=== PATIENT | female | born 1945 | race Hispanic/Latino ===

== ENCOUNTER → 2018-10-16 | Outpatient (CLI) | payer OTHER ==
[~2018-10-16] MED LIST: ASCO500T9 PO; CALC600T12 PO; CHOL100046 PO; MULT-1203 PO; OMEG1CAP12 PO; OMEP40CA37 PO; VITA200T6 PO
== END | disposition home or self-care (01) ==
LOC: RAH 14:42
PROVIDERS: ATTEND Internal Medicine
DX: I82.401 Acute embolism and thrombosis of unspecified deep veins of right lower extremity (principal)
CPT/HCPCS: 93971

== ENCOUNTER → 2019-04-19 | Outpatient (CLI) | payer OTHER | END | disposition home or self-care (01) | LOC: RAH 11:48 | PROVIDERS: ATTEND Internal Medicine | DX: M54.5 Low back pain (principal) | CPT/HCPCS: 72100; 72220 ==

== ENCOUNTER → 2019-09-01 | Outpatient (CLI) | payer OTHER ==
[~2019-09-01] MED LIST changes: +OMEP40CA13 PO; -OMEP40CA37 PO
== END | disposition home or self-care (01) ==
LOC: RAH 10:11
PROVIDERS: ATTEND Internal Medicine
DX: M25.561 Pain in right knee (principal)
CPT/HCPCS: 73562

== ENCOUNTER 2020-04-14 10:57 | Emergency (ER) | payer OTHER ==
[~2020-04-14 10:57] MED LIST changes: +ASCO500T20 PO; -ASCO500T9 PO; -CALC600T12 PO; +CALC600T15 PO
[2020-04-14] MEDS ORDERED: MAG HYDROX/AL HYDROX/SIMETH ES 30 ML SUSP UDCUP ONE (11:40)
[2020-04-14] MEDS ORDERED: LIDOCAINE HCL 2% VISCOUS 15 ML UDCUP ONE (11:40)
[2020-04-14 11:41] LABS: BASOPHILS % (AUTO) 0.3 % (0.0-5.0); LYMPHOCYTES % (AUTO) 26.3 % (21.0-51.0); MEAN CORPUSCULAR HEMOGLOBIN 29.4 pg (27.0-33.0); MEAN CORPUSCULAR HGB CONC 33.8 g/dL (32.0-36.0); MEAN CORPUSCULAR VOLUME 87.1 fL (79-99); MONOCYTES % (AUTO) 8.7 % (3.0-13.0); NEUTROPHILS % (AUTO) 63.4 % (40.0-77.0); PLATELET COUNT (AUTO) 164 K/uL (130-400); RED BLOOD CELL COUNT(AUTO) 4.59 MIL/uL (4.00-5.50); RED CELL DISTRIBUTION WIDTH 11.6 % (11.0-15.5); WHITE BLOOD COUNT (AUTO) 7.1 K/uL (4.8-10.8)
[2020-04-14 11:45] LABS: CREATININE 0.9 mg/dL (0.5-1.5); POTASSIUM 4.1 mmol/L (3.5-5.1)
[2020-04-14 11:50] LABS: ALBUMIN 4.3 g/dL (3.5-5.0); BILIRUBIN,TOTAL 1.2 mg/dL (0.2-1.0); TOTAL PROTEIN, SERUM 8.3 g/dL (6.0-8.3)
[2020-04-14 11:52] LABS: INR 0.89 (0.85-1.15); PARTIAL THROMBOPLASTIN TIME 26.8 SEC (26.3-35.5); PROTHROMBIN TIME 9.7 SEC (9.6-11.6)
[2020-04-14] MEDS ORDERED: FAMOTIDINE/PF 20 MG/2 ML VIAL IV ONE (13:03)
[2020-04-14] MEDS ORDERED: ACETAMINOPHEN EXTRA STRENGTH 500 MG TABLET ONE (16:01)
[2020-04-14] MEDS ORDERED: SODIUM CHLORIDE 0.9% 100 ML IV ONE (16:57)
== END 2020-04-14 16:30 | disposition home or self-care (01) ==
LOC: EDH 10:57
DX: K29.00 Acute gastritis without bleeding (principal); R07.89 Other chest pain; E78.00 Pure hypercholesterolemia, unspecified; Z90.49 Acquired absence of other specified parts of digestive tract; Z90.710 Acquired absence of both cervix and uterus; Z88.1 Allergy status to other antibiotic agents; Z88.6 Allergy status to analgesic agent
CPT/HCPCS: 36415; 71045; 80053; 82550; 84484 ×2; 85025; 85610; 85730; 93005 ×2; 96374; 99285; J3490

== ENCOUNTER → 2020-04-20 | Outpatient (CLI) | payer OTHER | END | disposition home or self-care (01) | LOC: RAH 08:32 | PROVIDERS: ATTEND Internal Medicine | DX: I08.1 Rheumatic disorders of both mitral and tricuspid valves (principal); I25.3 Aneurysm of heart | CPT/HCPCS: 93306; 93356 ==

== ENCOUNTER 2020-05-01 03:20 | Emergency (ER) | payer OTHER ==
[2020-05-01 03:56] LABS: BASOPHILS % (AUTO) 0.4 % (0.0-5.0); EOSINOPHILS % (AUTO) 1.1 % (0.0-8.0); HEMATOCRIT 40.6 % (36-48); LYMPHOCYTES % (AUTO) 32.7 % (21.0-51.0); MEAN CORPUSCULAR HEMOGLOBIN 29.4 pg (27.0-33.0); MEAN CORPUSCULAR VOLUME 86.4 fL (79-99); MONOCYTES % (AUTO) 9.5 % (3.0-13.0); NEUTROPHILS % (AUTO) 56.2 % (40.0-77.0); PLATELET COUNT (AUTO) 179 K/uL (130-400); RED CELL DISTRIBUTION WIDTH 11.3 % (11.0-15.5); WHITE BLOOD COUNT (AUTO) 7.6 K/uL (4.8-10.8)
[2020-05-01] MEDS ORDERED: CEFTRIAXONE SODIUM 1 GM ONE (04:04)
[2020-05-01] MEDS ORDERED: PHENAZOPYRIDINE HCL 200 MG TABLET ONE (04:05)
[2020-05-01 04:07] LABS: POTASSIUM 3.6 mmol/L (3.5-5.1)
[2020-05-01 04:25] LABS: APPEARANCE,URINE Clear (CLEAR); BILIRUBIN,URINE Negative (NEGATIVE); COLOR,URINE Yellow (YELLOW); GLUCOSE, URINE (UA) Negative (NEGATIVE); KETONES,URINE Negative (NEGATIVE); LEUKOCYTE ESTERASE ,URINE Negative (NEGATIVE); NITRATE,URINE Negative (NEGATIVE); OCCULT BLOOD,URINE Trace (NEGATIVE); PROTEIN,URINE Negative (NEGATIVE); UROBILINOGEN,URINE 0.2 mg/dL (0.2-1.0)
[2020-05-01 04:34] LABS: BACTERIA,URINE Rare /HPF (None Seen); MUCUS,URINE Few LPF (None Seen); RBC,URINE None Seen /HPF (0-1); SQUAMOUS EPITHELIAL CELL,UR Rare /HPF (0-2); WBC,URINE None Seen /HPF (0-1)
[2020-05-01] MEDS ORDERED: IOHEXOL-350 75 ML VIAL IV ONE (06:03)
== END 2020-05-01 06:39 | disposition home or self-care (01) ==
LOC: EDH 03:20
DX: R10.2 Pelvic and perineal pain (principal); E78.00 Pure hypercholesterolemia, unspecified; Z90.49 Acquired absence of other specified parts of digestive tract; Z90.710 Acquired absence of both cervix and uterus; Z88.8 Allergy status to other drugs, medicaments and biological substances; Z88.6 Allergy status to analgesic agent; Z88.1 Allergy status to other antibiotic agents
CPT/HCPCS: 36415; 51701; 80048; 81001; 83605; 85025; 87088; 96374; 99284; J0696; Q9967

== ENCOUNTER → 2020-05-18 | Outpatient (CLI) | payer OTHER | END | disposition home or self-care (01) | LOC: RAH 10:44 | PROVIDERS: ATTEND Internal Medicine | DX: N32.89 Other specified disorders of bladder (principal); R10.2 Pelvic and perineal pain | CPT/HCPCS: 76856 ==

== ENCOUNTER 2020-06-13 10:49 | Emergency (ER) | payer OTHER ==
[2020-06-13 11:58] LABS: BASOPHILS % (AUTO) 0.1 % (0.0-5.0); EOSINOPHILS % (AUTO) 0.6 % (0.0-8.0); HEMATOCRIT 39.9 % (36-48); LYMPHOCYTES % (AUTO) 19.2 % (21.0-51.0); MEAN CORPUSCULAR HEMOGLOBIN 29.5 pg (27.0-33.0); MEAN CORPUSCULAR HGB CONC 33.1 g/dL (32.0-36.0); MEAN CORPUSCULAR VOLUME 89.1 fL (79-99); MONOCYTES % (AUTO) 6.8 % (3.0-13.0); PLATELET COUNT (AUTO) 175 K/uL (130-400); RED BLOOD CELL COUNT(AUTO) 4.48 MIL/uL (4.00-5.50); RED CELL DISTRIBUTION WIDTH 11.9 % (11.0-15.5); WHITE BLOOD COUNT (AUTO) 6.9 K/uL (4.8-10.8)
[2020-06-13 12:14] LABS: APPEARANCE,URINE Clear (CLEAR); BILIRUBIN,URINE Negative (NEGATIVE); COLOR,URINE Yellow (YELLOW); GLUCOSE, URINE (UA) Negative (NEGATIVE); KETONES,URINE Negative (NEGATIVE); LEUKOCYTE ESTERASE ,URINE Negative (NEGATIVE); NITRATE,URINE Negative (NEGATIVE); OCCULT BLOOD,URINE Negative (NEGATIVE); PH,URINE 7.5 (5.0-8.0); PROTEIN,URINE Negative (NEGATIVE); UROBILINOGEN,URINE 0.2 mg/dL (0.2-1.0)
[2020-06-13 12:16] LABS: ALBUMIN 3.8 g/dL (3.5-5.0); BILIRUBIN,TOTAL 0.6 mg/dL (0.2-1.0); CREATININE 0.9 mg/dL (0.5-1.5); POTASSIUM 4.1 mmol/L (3.5-5.1); TOTAL PROTEIN, SERUM 7.2 g/dL (6.0-8.3)
[2020-06-13 12:33] LABS: INR 0.91 (0.85-1.15); PROTHROMBIN TIME 9.9 SEC (9.6-11.6)
[2020-06-13] MEDS ORDERED: IOHEXOL-350 75 ML VIAL IV ONE (14:32)
== END 2020-06-13 14:48 | disposition home or self-care (01) ==
LOC: EDH 10:49
DX: R10.11 Right upper quadrant pain (principal); G89.4 Chronic pain syndrome; E78.00 Pure hypercholesterolemia, unspecified; K21.9 Gastro-esophageal reflux disease without esophagitis; Z88.1 Allergy status to other antibiotic agents; Z88.8 Allergy status to other drugs, medicaments and biological substances; Z90.710 Acquired absence of both cervix and uterus; Z98.890 Other specified postprocedural states
CPT/HCPCS: 36415; 71045; 76705; 80053; 81003; 82550; 83690; 84439; 84443; 84480; 84481; 84484; 85025; 85610; 85730; 93005; Q9967

== ENCOUNTER → 2021-03-13 | Outpatient (CLI) | payer OTHER ==
[~2021-03-13] MED LIST changes: +CALC-1125 PO; -CALC600T15 PO; -OMEP40CA13 PO; +OMEP40CA21 PO
== END | disposition home or self-care (01) ==
LOC: RAH 09:56
PROVIDERS: ATTEND Urology Pediatric Urology
DX: N20.1 Calculus of ureter (principal); N20.0 Calculus of kidney; K76.89 Other specified diseases of liver; K57.90 Diverticulosis of intestine, part unspecified, without perforation or abscess without bleeding
CPT/HCPCS: 74176

== ENCOUNTER → 2021-07-26 | Outpatient (CLI) | payer OTHER ==
[2021-07-26 10:44] LABS: BASOPHILS % (AUTO) 0.3 % (0.0-5.0); EOSINOPHILS % (AUTO) 0.7 % (0.0-8.0); HEMATOCRIT 39.7 % (36-48); LYMPHOCYTES % (AUTO) 27.6 % (21.0-51.0); MEAN CORPUSCULAR HEMOGLOBIN 29.1 pg (27.0-33.0); MEAN CORPUSCULAR HGB CONC 32.2 g/dL (32.0-36.0); MEAN CORPUSCULAR VOLUME 90.2 fL (79-99); NEUTROPHILS % (AUTO) 63.1 % (40.0-77.0); PLATELET COUNT (AUTO) 155 K/uL (130-400); WHITE BLOOD COUNT (AUTO) 6.1 K/uL (4.8-10.8)
[2021-07-26 10:58] LABS: CREATININE 0.9 mg/dL (0.5-1.5); POTASSIUM 4.4 mmol/L (3.5-5.1)
== END | disposition home or self-care (01) ==
LOC: LAB 10:00
PROVIDERS: ATTEND Urology
DX: K57.30 Diverticulosis of large intestine without perforation or abscess without bleeding (principal); K52.3 Indeterminate colitis; N39.0 Urinary tract infection, site not specified
CPT/HCPCS: 36415; 80048; 85025

== ENCOUNTER → 2021-07-30 | Outpatient (CLI) | payer OTHER ==
[~2021-07-30] MED LIST changes: +IOHEXOL-350 75 ML VIAL IV ONE
== END | disposition home or self-care (01) ==
LOC: RAH 08:11
PROVIDERS: ATTEND Urology
DX: K57.30 Diverticulosis of large intestine without perforation or abscess without bleeding (principal); K52.3 Indeterminate colitis; K76.89 Other specified diseases of liver; N39.0 Urinary tract infection, site not specified; N28.1 Cyst of kidney, acquired; N32.89 Other specified disorders of bladder; M47.815 Spondylosis without myelopathy or radiculopathy, thoracolumbar region
CPT/HCPCS: 74178; Q9967

== ENCOUNTER → 2021-12-11 | Outpatient (CLI) | payer OTHER ==
[~2021-12-11] MED LIST changes: -IOHEXOL-350 75 ML VIAL IV ONE
== END ==
LOC: RAH 12:45
PROVIDERS: ATTEND Internal Medicine
DX: N93.9 Abnormal uterine and vaginal bleeding, unspecified (principal); Z90.710 Acquired absence of both cervix and uterus
CPT/HCPCS: 76856

== ENCOUNTER → 2022-01-09 | Outpatient (CLI) | payer OTHER | END | disposition home or self-care (01) | LOC: RAH 12:59 | PROVIDERS: ATTEND Internal Medicine Cardiovascular Disease | DX: Z13.6 Encounter for screening for cardiovascular disorders (principal) | CPT/HCPCS: 75571 ==

== ENCOUNTER → 2022-10-09 | Outpatient (CLI) | payer OTHER | END | disposition home or self-care (01) | LOC: RAH 09:58 | PROVIDERS: ATTEND Internal Medicine | DX: M25.551 Pain in right hip (principal) | CPT/HCPCS: 73502 ==

== ENCOUNTER 2025-03-07 07:01 | Emergency (ER) | payer OTHER ==
[~2025-03-07] VITALS: Ht 162.6 cm; Wt 74.8 kg
--- NOTE | 2025-03-07 07:32 | EKG ---
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
--- NOTE | 2025-03-07 07:42 | ERN ---
General Chief Complaint: Weakness Stated Complaint: WEAKNESS Time Seen by MD: 07:11 Source: patient History of Present Illness Initial Comments Patient is a 79-year-old female coming in with multiple complaints. Per patient she has been feeling generalized weakness has been also having dysuria and at times she feels chest discomfort. She states that this has been ongoing for several weeks was evaluated by her PCP and was started on medications for dysuria. No fever or chills. Allergies: Coded Allergies: celecoxib (Unverified Allergy, Intermediate, bloody stools, 06/21/16) clarithromycin (Unverified Allergy, Intermediate, bloody stool, 06/21/16) Home Meds Reported Medications Omeprazole (Omeprazole) 40 Mg Capsule.dr, 40 MG PO AD PRN for gerd, CAP 06/21/16 Multivitamin (Multi Vitamin Daily) 1 Each Tablet, 1 EACH PO AM, TAB 06/21/16 Calcium Carbonate (Calcium) 600 Mg Tablet, 600 MG PO BID, TAB 06/21/16 [place]-3 Fatty Acids (Fish Oil) 500 Mg Capsule, 500 MG PO BID, CAP 06/21/16 Cholecalciferol (Vitamin D3) (Vitamin D) 1,000 Unit Capsule, 1000 UNIT PO AM, CAP 06/21/16 Vitamin E Acid Succinate (Vitamin E) 200 Unit Tablet, 200 UNIT PO AM, TAB 06/21/16 Ascorbic Acid (Vitamin C) 500 Mg Tablet, 500 MG PO AM, TAB 06/21/16 Past Medical History Past Medical History: Diabetes-Type II, Hypertension, UTI Medical History Other: CHRONIC BACK PAIN Past Surgical History: Hysterectomy Surgical History Other: WRIST ROS Dictation CONSTITUTIONAL: No chills, no fever, weakness, no diaphoresis, malaise. HEAD/FACE: No signs of trauma. EENT: No eye pain, no blurred vision, no tearing, no double vision, no ear pain, no ear discharge, no nose pain, no nasal congestion, no throat pain, no throat swelling, no mouth pain. RESPIRATORY: No cough, no orthopnea, no SOB, no stridor, no wheezing. CARDIOVASCULAR: No chest pain, no edema, no palpitations, no syncope. GASTROINTESTINAL/ABDOMINAL: No abdominal pain, no constipation, no diarrhea, no nausea, no vomiting. GENITOURINARY: No abnormal discharge, dysuria, no frequent urination, no hematuria. No complaints of pain in the genitals. MUSCULOSKELETAL: No back pain, no gout, no joint pain, no joint swelling, no muscle pain, no muscle stiffness, no neck pain. INTEGUMENTARY: No change in color, no change in hair/nails, no dryness, no lesion, no lumps, no rash. NEUROLOGICAL/PSYCH: No anxiety, not depressed, no emotional problem, no headache, no numbness, no pre-existing deficit, no history of seizures, no tremors, no weakness. HEMATOLOGIC/LYMPHATIC: Not anemic, no history of blood clots, no apparent bleeding, no bruising, glands not swollen. All Systems Negative, Except as Noted. Physical Exam Physical Exam Dictation VITAL SIGNS: Reviewed. GENERAL APPEARANCE: Alert, oriented x3, no acute distress, obese. HEAD AND FACE: Non-traumatic. EYES: PERRL, pink conjunctivas, eyelid no trauma, anterior chamber clear. EARS: Pinnas intact and no signs of trauma or erythema. Ear canals clear and no discharge. TMs no erythema. NOSE: No discharge, no bleeding. OROPHARYNX: Mouth normal, teeth no caries, tongue pink. Pharynx clear, no erythema. Tonsils no exudates, no abscesses noted. Mucous membrane moist. NECK: Supple, non-tender, no thyromegaly, no masses, no JVD, no bruits. BREAST: Deferred. CHEST: No tenderness, no crepitus, no paradoxical movement, no retractions. LUNGS: Clear, well-ventilated, symmetric, no rales, no wheezing, no rhonchi, no stridor, good breath sounds bilaterally. HEART: Regular rate, regular rhythm, no murmur, no gallops. VASCULAR: No peripheral edema. ABDOMEN: Soft, positive bowel sounds, nondistended, no guarding, nontender, no rebound, no masses no hepatomegaly, no splenomegaly, no Gonzalez's sign, no hernias. RECTAL: Deferred. GENITAL: Deferred. NEUROLOGICAL: Normal speech, gross motor function intact, gross sensory function intact. MUSCULOSKELETAL: Neck nontender, full range of motion, back nontender, full range of motion. EXTREMITIES: Nontender, full range of motion. SKIN: Color pink, dry, no turgor, no rash, no lacerations, no abrasions, no contusions. LYMPHATICS: Deferred. Results Laboratory and Microbiology Lab and Micro Result Laboratory Tests Test 03/07/25 07:14 03/07/25 07:18 Urine Color LIGHT-YELLOW (YELLOW) Urine Appearance CLEAR (CLEAR) Urine pH 7.5 (5.0-8.0) Urine Specific [place] 1.010 (1.001-1.031) Urine Protein NEGATIVE mg/dL (NEGATIVE) Urine Glucose (UA) NEGATIVE mg/dL (NEGATIVE) Urine Ketones NEGATIVE mg/dL (NEGATIVE) Urine Occult Blood NEGATIVE (NEGATIVE) Urine Nitrate NEGATIVE (NEGATIVE) Urine Bilirubin NEGATIVE mg/dL (NEGATIVE) Urine Urobilinogen 0.2 mg/dL (0.2-1.0) Urine Leukocyte Esterase NEGATIVE [place]/uL White Blood Count 5.5 K/uL (4.8-10.8) Red Blood Count 4.34 MIL/uL (4.00-5.50) Hemoglobin 12.8 g/dL (12.0-16.0) Hematocrit 39.0 % (36-48) Mean Corpuscular Volume 89.9 fL (79-99) Mean Corpuscular Hemoglobin 29.5 pg (27.0-33.0) Mean Corpuscular Hemoglobin Concent 32.8 g/dL (32.0-36.0) Red Cell Distribution Width 12.2 % (11.0-15.5) Platelet Count 179 K/uL (130-400) Mean Platelet Volume 10.9 fL (7.5-10.5) H Immature Granulocyte % (Auto) 0.4 % (0-1) Neutrophils (%) (Auto) 53.9 % (40.0-77.0) Lymphocytes (%) (Auto) 35.7 % (21.0-51.0) Monocytes (%) (Auto) 8.7 % (3.0-13.0) Eosinophils (%) (Auto) 1.1 % (0.0-8.0) Basophils (%) (Auto) 0.2 % (0.0-5.0) Neutrophils # (Auto) 3.0 K/uL (1.8-7.7) Lymphocytes # (Auto) 2.0 K/uL (1.0-4.8) Monocytes # (Auto) 0.5 K/uL (0.1-1.0) Eosinophils # (Auto) 0.06 K/uL (0.00-0.70) Basophils # (Auto) 0.01 K/uL (0.00-0.20) Absolute Immature Granulocyte (auto 0.02 K/uL (0-1) Nucleated Red Blood Cells 0.0 % (0.0-0.19) Sodium Level 140 mmol/L (136-145) Potassium Level 3.9 mmol/L (3.5-5.1) Chloride Level 105 mmol/L (101-111) Carbon Dioxide Level 31 mmol/L (21-32) Blood Urea Nitrogen 19 mg/dL (7-18) H Creatinine 0.8 mg/dL (0.5-1.0) Glomerular Filtration Rate Calc 75 mL/min (>90) Random Glucose 116 mg/dL (70-105) H Total Calcium 9.2 mg/dL (8.5-10.1) Magnesium Level 2.00 mg/dL (1.80-2.40) Total Creatine Kinase 98 U/L (21-232) # Troponin I High Sensitivity 7 ng/L (4-50) Labs Reviewed?: Yes EKG/XRAY/US/CT/MRI EKG Comment 03/07/2025 time 9:28 a.m. Ventricular rate [address] wave elevation or depression MDM MDM: Differential diagnosis: Dehydration, bradycardia, Rationale: Tests considered and ordered secondary to shared decision making include: Previous outside records reviewed: Old ER visits. Risk of complication and/or morbidity or mortality of patient management: None Medications-Per medication reconciliation Need for hospitalization: Patient does not meet criteria for hospitalization. Patient is a 79-year-old female coming in complaining of generalized body weakness and fatigue. Laboratory workup within normal limits. Patient was hydrated with IV fluids states he feels much better we will be discharged in stable condition. Patient was evaluated with a cardiac workup EKG shows bradycardia I did advise her to mentioned in his to PCP. For ongoing evaluation the patient is asymptomatic. ED Course Orders Procedure Category Date Status Time 12 Lead Ekg Tracing- EKG 03/07/25 Complete Technical 07:20 Cbc With Differential LAB 03/07/25 Complete : Chest 1vw RAD 03/07/25 Resulted 07:28 Lactated Ringers PHA 03/07/25 Complete 1000ml (Lactated 07:30 Magnesium LAB 03/07/25 Complete 07:28 Creatine Kinase, Total LAB 03/07/25 Complete 07:28 Troponin I High LAB 03/07/25 Complete Sensitivity 07:28 Urinalysis Profile LAB 03/07/25 Complete 07:28 Basic Metabolic Panel LAB 03/07/25 Complete 07:28 12 Lead Ekg Tracing- EKG 03/07/25 Complete Technical 09:21 Current Medications Medications (Trade) Dose Ordered Sig/Larry Route PRN Reason Start Time Stop Time Status Last Admin Dose Admin Lactated Ringer's 1,000 ml @ 0 mls/hr ONCE ONCE IV 03/07/25 07:30 03/07/25 07:31 DC 03/07/25 07:46 Vital Signs Date Time Temp Pulse Resp B/P (MAP) Pulse Ox O2 Delivery O2 Flow Rate FiO2 03/07/25 10:26 97.9 50 13 159/57 100 Room Air* 0 21 03/07/25 08:58 97.2 54 15 152/54 98 Room Air* 0 21 03/07/25 07:53 97.9 54 14 157/49 100 Room Air* 0 21 03/07/25 07:03 97.9 56 16 167/55 98 Room Air 0 03/07/25 07:03 97.9 56 16 167/55 98 Room Air* 0 21 DX & DISP Disposition: Discharge Departure Impression: Primary Impression: Dehydration Additional Impression: Bradycardia Condition: Stable Additional Instructions: You have been reviewed in the emergency department at [facility] after presenting with chest pain. After considering your history, your risk factors, your EKG and your blood test troponins, have been found to be at very low risk less than (1 in 100) of having a major adverse cardiac event (like heart attack) in the near future. In the " low risk" group, the risks of doing further tests and treatment as the inpatient outweighs the benefits. In many patients in the low risk group for the test of any sort or unnecessary, however he should discuss this further with his general practitioner who will understand the medical and personal backgrounds better. Because we have never declared you" no risk" we would suggest. 1 returning for medical review if you have further episodes of chest pain/arm pain or other concerning symptoms like dizziness, collapse, palpitations or shortness of breath. 2. Following up with your local doctor who will consider the need for further testing and will also ensure that any modifiable risk factors you may have for heart disease are optimally managed. Patient will be discharged in stable condition at the moment discharge patient states , no chest pain Referrals: BAMBI PASTOR MD (PCP) Time of Disposition: 10:44 DESIRAE ALMEIDA MD Mar 07, 2025 07:42
[2025-03-07 07:44] LABS: IMMATURE GRANULOCYTE ABSOLUTE 0.02 K/uL (0-1); NUCLEATED RED BLOOD CELLS 0.0 % (0.0-0.19); PLATELET COUNT (AUTO) 179 K/uL (130-400); RED BLOOD CELL COUNT(AUTO) 4.34 MIL/uL (4.00-5.50); RED CELL DISTRIBUTION WIDTH 12.2 % (11.0-15.5); WHITE BLOOD COUNT (AUTO) 5.5 K/uL (4.8-10.8)
[2025-03-07] MEDS: LACTATED RINGERS 1000ML 1,000 ML IV ONE (07:46)
[2025-03-07 07:48] LABS: CREATININE 0.8 mg/dL (0.5-1.0); GLOMERULAR FILTR. RATE CALC 75.0 mL/min (>90); GLUCOSE,RANDOM 116.0 mg/dL (70-105); SODIUM SERUM 140.0 mmol/L (136-145); UREA NITROGEN, BLOOD 19.0 mg/dL (7-18)
[2025-03-07 07:53] LABS: CREATINE KINASE, TOTAL 98.0 U/L (21-232)
[2025-03-07 07:56] LABS: APPEARANCE,URINE CLEAR (CLEAR); GLUCOSE, URINE (UA) NEGATIVE (NEGATIVE); LEUKOCYTE ESTERASE ,URINE NEGATIVE Leu/uL (NEGATIVE); NITRATE,URINE NEGATIVE (NEGATIVE); OCCULT BLOOD,URINE NEGATIVE (NEGATIVE)
[2025-03-07 08:01] LABS: ADD UA MICROSCOPIC NO
--- NOTE | 2025-03-07 09:34 | EKG ---
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
--- NOTE | 2025-03-07 10:07 | HMCIMG ---
EXAM: CR Chest, 1 View. CLINICAL HISTORY: cp COMPARISON: None provided. Radiograph dated June 13, 2020. FINDINGS: LUNGS: The lungs show no infiltrate or other acute finding. PLEURAL SPACES: No evidence of pleural effusion or pneumothorax. MEDIASTINUM: Mild cardiomegaly. Pulmonary vasculature and interstitial markings are within normal limits. BONES: No acute osseous abnormality. IMPRESSION: 1. Mild cardiomegaly. /[place]
[2025-03-07 10:26] VITALS: BP 159/57; PULSE 50; RESP 13; TEMP 97.9; O2SAT 100
== END 2025-03-07 10:53 | disposition home or self-care (01) ==
LOC: EDH 07:01
DX: E86.0 Dehydration (principal); R00.1 Bradycardia, unspecified; E11.9 Type 2 diabetes mellitus without complications; I10 Essential (primary) hypertension; Z90.710 Acquired absence of both cervix and uterus
CPT/HCPCS: 99285; 96360; 96361; 71045; 82550; 83735; 84484; 80048; 85025; 81003; 36415; 93005 ×2; J7120

== ENCOUNTER → 2025-05-26 | Outpatient (CLI) | payer OTHER ==
[2025-05-26 07:52] LABS: CREATININE 0.8 mg/dL (0.5-1.0); GLOMERULAR FILTR. RATE CALC 75.0 mL/min (>90); UREA NITROGEN, BLOOD 14.0 mg/dL (7-18)
== END | disposition home or self-care (01) ==
LOC: LAB 07:29
PROVIDERS: ATTEND Internal Medicine Gastroenterology
DX: R93.2 Abnormal findings on diagnostic imaging of liver and biliary tract (principal); R93.41 Abnormal radiologic findings on diagnostic imaging of renal pelvis, ureter, or bladder
CPT/HCPCS: 36415; 82565; 84520

== ENCOUNTER → 2025-05-27 | Outpatient (CLI) | payer OTHER ==
[~2025-05-27] MED LIST changes: +IOHEXOL 350 MG/ML 100ML INFUS..BTL IV ONE
--- NOTE | 2025-06-01 12:56 | HMCIMG ---
EXAM: CT Abdomen and Pelvis with and without IV contrast CLINICAL HISTORY: Abnormal findings on radiograph TECHNIQUE: Thin collimated axial CT images of the abdomen and pelvis were obtained before and after contrast administration of 100 mL of Optiray 350 IV. Oral contrast was administered. Sagittal and coronal reformatted images also submitted for interpretation. The total dose length product has been recorded in the electronic medical record. CT scan done according to ALARA (as low as reasonably achievable). COMPARISON: CT abdomen and pelvis dated 03/13/2021 FINDINGS: LUNG BASES: Mild bibasilar dependent atelectasis. No pleural effusions are seen. Stable mild cardiomegaly. LIVER: Diffuse hepatic steatosis. A stable hepatic cyst measuring 4 x 3.8 cm in segment Raymond. A subcentimetric calcified granuloma in segment VIII. GALLBLADDER AND BILE DUCTS: The gallbladder appears within normal limits. No radioopaque gallstones are seen. Redemonstrated smooth tapering of the distal common bile duct with upstream mild dilatation up to 0.8 cm and mild central intrahepatic biliary radical dilatation. PANCREAS: There is a stable 1.4 x 1 cm fluid density lesion in the distal body region. SPLEEN: Unremarkable. ADRENAL GLANDS: Unremarkable. KIDNEYS, URETERS, AND BLADDER: Residual contrast in the bilateral excretory system from prior studies limits the evaluation of renal calculi. No obstructing stones. No obstructing stones. Stable left renal cortical and parapelvic cysts. Stable tiny right renal cortical cysts. There is no hydronephrosis or hydroureter. Bilateral renal nephrograms within normal limits. STOMACH AND BOWEL: Uncomplicated colonic diverticula. Unremarkable appearance of the stomach and bowel. No evidence of bowel obstruction. No evidence suggesting enteritis or colitis. APPENDIX: Unremarkable. PERITONEUM: No free fluid. No free air. LYMPH NODES: No lymphadenopathy is evident. REPRODUCTIVE: Presumed hysterectomy status. VASCULATURE: No evidence of abdominal aortic aneurysm. Hepatic veins and IVC are dilated, redemonstrating hepatic congestion. BONES: No aggressive appearing osseous lesion. No acute osseous pathology evident. Multilevel mild degenerative changes of the spine. IMPRESSION: 1. Stable mild common bile duct dilatation with upstream mild intrahepatic biliary dilatation, possibly secondary to functional narrowing. 2. Stable 1.4 cm fluid density lesion in the distal pancreatic body. This likely represents an IPMN. 3. Small stable bilateral renal cortical and left peripelvic cysts. 4. Stable mild cardiomegaly with pericardial thickening and hepatic venous congestion. 5. Residual contrast in the bilateral excretory system from prior studies limits the evaluation for renal calculi. No obstructing stones. No hydroureter or hydroureteronephrosis. /[place]
== END | disposition home or self-care (01) ==
LOC: RAH 08:20
PROVIDERS: ATTEND Internal Medicine Gastroenterology
DX: K76.0 Fatty (change of) liver, not elsewhere classified (principal); K76.1 Chronic passive congestion of liver; K83.8 Other specified diseases of biliary tract; N28.1 Cyst of kidney, acquired; I51.7 Cardiomegaly; N20.0 Calculus of kidney; M47.817 Spondylosis without myelopathy or radiculopathy, lumbosacral region; J98.11 Atelectasis; J98.4 Other disorders of lung; R93.2 Abnormal findings on diagnostic imaging of liver and biliary tract; R93.41 Abnormal radiologic findings on diagnostic imaging of renal pelvis, ureter, or bladder; Z90.710 Acquired absence of both cervix and uterus
CPT/HCPCS: 74178; Q9967

== ENCOUNTER → 2025-07-11 | Outpatient (CLI) | payer OTHER ==
[~2025-07-11] MED LIST changes: -IOHEXOL 350 MG/ML 100ML INFUS..BTL IV ONE
[2025-07-11 14:46] LABS: IMMATURE GRANULOCYTE ABSOLUTE 0.01 K/uL (0-1); NUCLEATED RED BLOOD CELLS 0.0 % (0.0-0.19); PLATELET COUNT (AUTO) 151 K/uL (130-400); RED BLOOD CELL COUNT(AUTO) 3.97 MIL/uL (4.00-5.50); RED CELL DISTRIBUTION WIDTH 12.0 % (11.0-15.5); WHITE BLOOD COUNT (AUTO) 6.4 K/uL (4.8-10.8)
[2025-07-11 14:56] LABS: INR 0.99 (0.85-1.15)
[2025-07-11 15:01] LABS: ASPARTATE AMINOTRANSFERASE 21.0 U/L (10-37); CREATININE 1.2 mg/dL (0.5-1.0); GLOMERULAR FILTR. RATE CALC 46.0 mL/min (>90); GLUCOSE,RANDOM 130.0 mg/dL (70-105); SODIUM SERUM 141.0 mmol/L (136-145); TOTAL PROTEIN, SERUM 7.2 g/dL (6.0-8.3); UREA NITROGEN, BLOOD 22.0 mg/dL (7-18)
== END | disposition home or self-care (01) ==
LOC: LAB 14:11
PROVIDERS: ATTEND Internal Medicine Gastroenterology
DX: R93.2 Abnormal findings on diagnostic imaging of liver and biliary tract (principal); R10.30 Lower abdominal pain, unspecified
CPT/HCPCS: 36415; 80053; 82150; 83690; 85025; 85610

== ENCOUNTER → 2025-07-13 | Outpatient (CLI) | payer OTHER ==
[~2025-07-13] MED LIST changes: +GADOTERATE MEGLUMINE 10 MMOL/20 ML VIAL IV ONE
--- NOTE | 2025-07-13 13:50 | HMCIMG ---
EXAM: ABDOMEN WITH AND WITHOUT IV CONTRAST CLINICAL HISTORY: Abnormal prior imaging. Prior CT scan of the abdomen and pelvis dated 06/27/2025 is available for comparison which demonstrated a simple hepatic cyst in the segment ARIADNA of the liver, mild dilated CBD and central intrahepatic biliary ducts, pancreatic cystic lesion in the distal body region. The current imaging has been performed to elucidate. TECHNIQUE: Multiplanar and multisequence MR images of the abdomen were obtained before and after IV contrast administration. CONTRAST: Intravenous contrast was administered. COMPARISON: Prior CT scan of the abdomen and pelvis dated 05/27/2025. FINDINGS: LOWER CHEST: No pleural effusion. LIVER: Again seen is a segment ARIADNA hepatic lesion measuring 3.4 x 2.7 x 2.6 cm, appearing hyperintense on T2 and hyperintense on T1. There is similar signal intensity smaller lesion measuring 1 x 0.7 x 0.5 cm visualized adjacent to it. No restriction of diffusion in the hepatic lesion. Non-enhancement of the hepatic lesions. No fatty infiltration. GALLBLADDER AND BILIARY TREE: The gallbladder is unremarkable. There is no gallbladder lumen calculus. The common bile duct measures 6 mm with dilatation till the level of the ampulla. There is minimal central intrahepatic biliary ductal dilatation. PANCREAS: There is prominence of the main pancreatic duct which measures 4 mm in diameter, without intraductal calculi. Again seen is a pancreatic distal body / tail cystic lesion measuring 1.4 x 1.3 x 1.5 cm with internal septations. No definite communication with the main pancreatic duct could be visualized. No restriction of diffusion in the pancreatic lesion. The pancreatic lesion demonstrates enhancement of the internal septations and a few nodular areas. There is no peripancreatic edema. SPLEEN: Non-enlarged. Unremarkable signal intensity. ADRENAL GLANDS: Non-enlarged, no adrenal gland nodule. KIDNEYS: There is prominence of the left renal pelvicalyceal system with abrupt caliber transition at the ureteropelvic junction, consistent with mild hydronephrosis. Similar changes are also visualized on the right side. There is no ureteric dilatation. There is a left renal inferior polar lesion appearing hyperintense on T2, hypointense on T1 and measuring 0.8 cm, stable since the prior examination. There is a T1, T2 hypointense endophytic lesion in the right kidney, measuring 0.5 x 0.4 cm, series 7, image 14/43. No diffusion restriction in the right or the left renal lesions. Post-contrast, there is no enhancement of the left renal cyst. There are subcentimetric multiple right renal cysts also observed, similar to the prior examinations. The T1 and T2 hyperintense lesion noted in the right kidney does not show any post-contrast enhancement, suggestive of a cyst with inspissated contents. LYMPH NODES: No enlarged periportal or retroperitoneal lymph nodes. PERITONEUM: No ascites or fluid collection. VESSELS: Aorta is non-dilated. IMPRESSION: 1. 1.4 cm cystic lesion in the pancreatic tail with enhancement of internal septations and a few nodular areas, favored to represent a pancreatic cystic neoplasm over intraductal papillary mucinous neoplasm. Recommend with serum tumor marker levels correlation and follow up MRI at 6 months interval. 2. The common bile duct is mildly dilated to 6 mm with minimal central intrahepatic biliary ductal dilatation. No biliary acute calculi or mass. This may be due to benign biliary stricture / sphincter of Oddi dysfunction. Recommend laboratory and clinical parameters correlation. 3. Mild bilateral hydronephrosis with abrupt caliber transition at the ureteropelvic junctions, without ureteric dilatation. This may represent bilateral ureteropelvic junction stricture causing hydronephrosis. 4. The 3.4 cm segment ARIADNA hepatic lesion, a simple hepatic cyst. 5. Multiple bilateral Bosniak class I renal cysts. 6. The 0.5 cm T1/T2 hyperintense right renal lesion shows no enhancement, suggestive of a cyst with inspissated contents, Bosniak class II. 7. In comparison with the prior CT scan of the abdomen and pelvis dated May 27, 2025, there is no interval change. /[place]
== END | disposition home or self-care (01) ==
LOC: RAH 07:28
PROVIDERS: ATTEND Internal Medicine Gastroenterology
DX: N28.1 Cyst of kidney, acquired (principal); N13.30 Unspecified hydronephrosis; D13.6 Benign neoplasm of pancreas; K76.89 Other specified diseases of liver; K86.2 Cyst of pancreas; R93.2 Abnormal findings on diagnostic imaging of liver and biliary tract
CPT/HCPCS: 74183; A9575